=== PATIENT | female | born 1990 | race Caucasian/White ===

== ENCOUNTER 2016-06-07 12:14 | Emergency (ER) | payer OTHER ==
--- NOTE | ~2016-06-07 | CR63 ---
[facility] A Service of [facility] RADIOLOGY TEXT RESULTS PATIENT: MIKE VALLEJO LOCATION: SED : 88 UNIT #: [id number] AGE: [address]: Liz Winter APRN SEX: F ORDER DR: [id number] [place] [id number] E MR#: [id number] Acc #: [id number] NAME: MIKE VALLEJO : 1990 SEX: F STUDY DATE/TIME: 06/07/2016 12:07 UNIT: SED ROOM: STUDY DESCRIPTION: CR Chest 2 View Attending Physician: Liz Winter A.P.R.N. Ordering Physician: Liz Winter A.P.R.N. Primary Care Physician: Chanelle Steele M.D. MEDICAL IMAGING REPORT This report is preliminary unless electronic signature is present. EXAM PA lateral chest INDICATIONS 25-year-old female with cough and congestion for 1 week. Comparison with 03/22/2015 FINDINGS The lungs are well expanded and clear. Heart size is normal. Visualized osseous structures are unremarkable. IMPRESSION Negative chest Dictated by... Nick Escamilla M.D. THIS IS AN ELECTRONICALLY VERIFIED REPORT Nick Escamilla M.D. at 06/08/2016 9:08 AM MEGAN/donta TD: 06/07/2016 14:15 JOB #: [id number] MEDICAL IMAGING REPORT Page 1 of 1
[~2016-06-07 12:14] MED LIST: ALBUTEROL17 GM INH; ARIXTRA5 MG/0.4 M SQ; ASPIRIN81 M1 PO; AUGMENTIN PO; BACTRIM DS TABL1 TA2 PO; BENZONATATE PO; CELEXA10 MG PO; DICLOFENAC PO; FLEXERIL PO; FOLIC ACID1 MG PO; IBUPROFEN800 MG PO; MACROBID100 MG PO; MOTRIN600 M2 DOB; MOTRIN600 MG PO; NAPROSYN500 MG PO; NAPROXEN PO; NO MEDICATIONS; PHENERGAN DM1 ML DOB; PHENERGAN PO; PHENERGAN25 MG PO; PREDNISONE1 MG PO; PRENATAL1 TA1 PO; PYRIDIUM PO; TUSSIONEX PENN473 ML PO; ZITHROMAX PO; ZOFRAN ODT4 MG PO; ZOVIRAX800 MG PO
== END 2016-06-07 14:00 | disposition home or self-care (01) ==
LOC: SED 12:14
DX: J20.9 Acute bronchitis, unspecified (principal); F17.210 Nicotine dependence, cigarettes, uncomplicated; Z88.1 Allergy status to other antibiotic agents; Z88.8 Allergy status to other drugs, medicaments and biological substances
CPT/HCPCS: 71020; 84703; 94640; 99283